=== PATIENT | female | born 1955 | race African-American/Black ===

== ENCOUNTER 2017-02-19 15:59 | Outpatient (CLI) | payer BC ==
--- NOTE | 2017-02-19 16:29 | XRay Report ---
X-RAY LUMBAR SPINE WITH FLEXION AND EXTENSION 5 VIEWS: 02/19/17 15:59:00 CLINICAL: Back pain. FINDINGS: Normal vertebral body height, alignment and disk spaces. Mild lower lumbar levoscoliosis centered at L4-5. No subluxation with flexion and extension. The pedicles are intact. No fracture. Normal soft tissues. IMPRESSION: Mild lower lumbar scoliosis and otherwise normal.
== END 2017-02-19 16:00 | disposition home or self-care (01) ==
LOC: SPVIMAG 15:59
PROVIDERS: ATTEND Hospitalist
DX: M41.86 Other forms of scoliosis, lumbar region (principal)
CPT/HCPCS: 72110

== ENCOUNTER 2017-10-21 15:54 | Outpatient (CLI) | payer BC ==
--- NOTE | 2017-10-21 16:52 | Mammography Report ---
BILATERAL MAMMOGRAM: FINDINGS: The breast tissue is heterogeneously dense, which could obscure detection of small masses (approximately 50%-75% glandular). No mass, distortion, suspicious calcification, or skin change is seen. No significant change identified when compared to exams dating back to 2015. CAD was utilized. IMPRESSION: Negative mammogram. There is no mammographic evidence of malignancy. RECOMMENDATION: Follow-up per ACS guidelines. BI-RADS CATEGORY: 1 = Negative ACR BI-RADS MAMMOGRAPHIC CODES: 0 = Needs additional imaging evaluation; 1 = Negative; 2 = Benign; 3 = Probably benign; 4 = Suspicious; 5 = Malignant; 6 = Known biopsy-proven malignancy COMMENT: 1. Dense breast tissue, i.e., adenosis, fibrocystic changes, etc., may obscure an underlying neoplasm. 2. Approximately 10% of cancers are not detected with mammography. 3. A negative mammography report should not delay biopsy if a clinically suspicious mass is present. COMMENT: Patient follow-up letters are generated in [employer].
== END 2017-10-21 15:55 | disposition home or self-care (01) ==
LOC: SPVWC 15:54
PROVIDERS: ATTEND Obstetrics & Gynecology
DX: Z12.31 Encounter for screening mammogram for malignant neoplasm of breast (principal)
CPT/HCPCS: 77067; G0202